=== PATIENT | female | born 1985 | race Caucasian/White ===

== ENCOUNTER 2020-01-18 00:32 | Outpatient (CLI) | payer OTHER, SELFPAY ==
[2020-01-18 21:18] LABS: SARS-CoV-2 RNA PCR Negative
== END 2020-01-18 00:33 | disposition home or self-care (01) ==
LOC: ANHCOVIDDT 00:32
PROVIDERS: PCP Internal Medicine; Visit Provider Otolaryngology
DX: Z01.812 Encounter for preprocedural laboratory examination (principal); Z20.828 Contact with and (suspected) exposure to other viral communicable diseases
CPT/HCPCS: 87635; C9803; U0003

== ENCOUNTER 2020-01-21 00:32 | Day surgery (SDC) | payer OTHER, SELFPAY ==
[2020-01-09 11:34] VITALS: BMI 21.9
--- NOTE | 2020-01-20 06:11 | PM.PROC ---
Procedure Note - Detailed Date of procedure: 01/20/20 Pre-op diagnosis: Scalp Cyst scalp cyst Post-op diagnosis: same Procedure performed: scalp cyst Description of procedure: patient was prepped and draped fashion general anesthesia injected xylocaine with adrenaline and elliptical incision made around the large scalp cyst was excised hemostasis was obtained with electrocautery and closed with 5 0 chromic Anesthesia: GLMA Surgeon: Jay Carranza MD Estimated blood loss (mL): 5 Pathology: yes Complications: No immediate complications Condition: stable Disposition: PACU Findings: scalp cyst
--- NOTE | 2020-01-20 06:17 | PM.HPGS ---
History of Present Illness History of Present Illness Consent: Risks, benefits, and alternatives have been discussed and questions answered. Patient agrees to proceed with procedure. Chief complaint: Scalp Cyst Narrative: oHng Chavez is a 3 plan is excision of scalp cyst4 year old female Review of Systems Allergic/Immunologic: Comments: excisions scalp cystis plan PMFSH Social History Social History Smoking status: Never smoker Spiritual care concerns: No Meds Home Medications and Allergies Home Medications Medication Instructions Recorded Confirmed Type prenat.vits,arti,yua-oppa-opkfg 1 tablet PO DAILY 12/16/19 01/09/20 History Allergies Allergy/AdvReac Type Severity Reaction Status Date / Time No Known Allergies Allergy Unverified 01/09/20 11:35
--- NOTE | 2020-01-21 05:14 | PM.HPGS ---
History of Present Illness History of Present Illness Consent: Risks, benefits, and alternatives have been discussed and questions answered. Patient agrees to proceed with procedure. Chief complaint: Scalp Cyst Narrative: Hong Chavez is a 34 year old female she has a scalp cyst needs to be excised Review of Systems Review of Systems: All systems reviewed & are unremarkable except as noted in HPI and below PMFSH Social History Social History Smoking status: Never smoker Spiritual care concerns: No Meds Home Medications and Allergies Home Medications Medication Instructions Recorded Confirmed Type prenat.vits,arti,rpi-ckbr-chalh 1 tablet PO DAILY 12/16/19 01/09/20 History Allergies Allergy/AdvReac Type Severity Reaction Status Date / Time No Known Allergies Allergy Unverified 01/09/20 11:35 Assessment and Plan Additional Plan Plan is excision of a scalp cyst
--- NOTE | 2020-01-21 05:32 | WPDHPUPDATE1 ---
History and Physical Update Update Date/Time: 01/21/20 05:32 History and Physical has been reviewed, including an updated exam of the patient. There are NO changes in the patient's condition. Risks, benefits, and alternatives have been discussed and questions answered. Patient agrees to proceed with procedure.
[2020-01-21 09:41] VITALS: BP 104/59; PULSE 73; RESP 16; TEMP 36.3; O2SAT 100
[2020-01-21 10:01] VITALS: BP 111/75; PULSE 77; RESP 16; O2SAT 98
[2020-01-21 10:10] VITALS: BP 106/72; PULSE 71; RESP 16; O2SAT 100
[2020-01-21] MEDS: LIDO 1%/EPINEPHRINE 1:100,000 20 ML VIAL INFILTRATE (10:12)
[2020-01-21 10:18] VITALS: BP 108/72; PULSE 74; RESP 16; O2SAT 97
--- NOTE | 2020-01-21 10:21 | PM.PROC ---
Procedure Note - Detailed Date of procedure: 01/21/20 Pre-op diagnosis: Scalp Cyst Scalp cyst Post-op diagnosis: same Procedure performed: Patient prepped local anesthesia with 1% xylocaine and incision made over the prominence of his least a 3 cm scalp cyst this was a look excised Description of procedure: Excision scalp cyst Anesthesia: GLMA Surgeon: Jay Carranza MD Estimated blood loss (mL): 5 Drains: No Packing: No Pathology: yes Condition: stable Findings: Scalp cyst
[2020-01-21 10:25] VITALS: BP 98/63; PULSE 70; RESP 16
== END 2020-01-21 10:47 | disposition home or self-care (01) ==
PROVIDERS: PCP Internal Medicine; Visit Provider Otolaryngology
PROC: (CPT 11423; principal; 2020-01-21 10:45)
DX: L72.11 Pilar cyst (principal)
CPT/HCPCS: 11423; 88304; 88305; A9270